=== PATIENT | female | born 1965 | race Caucasian/White ===

== ENCOUNTER → 2016-12-22 | Outpatient (CLI) | payer BC ==
--- NOTE | 2016-12-22 13:49 | REP ---
NUCLEAR PARATHYROID SESTAMIBI SCAN WITH SPECT IMAGING: Following the intravenous administration of 26.1 mCi of technetium-99m sestamibi images of the neck are performed at 15 minutes and 3 hours postinjection in the anterior and both anterior oblique projections. SPECT imaging is also performed 3 hours postinjection. The initial images show symmetrical salivary gland and thyroid activity. On delayed images there is washout of activity from the thyroid bed in a relatively symmetrical pattern. There is no persistent focus of increased uptake in the thyroid bed bilaterally. IMPRESSION: No compelling scintigraphic evidence of parathyroid adenoma. Signed by Richar Boles MD 12/22/2016 03:31 P
== END ==
LOC: M RAD 08:27
PROVIDERS: ATTEND Physician Assistant Medical
DX: E83.52 Hypercalcemia (principal)

== ENCOUNTER → 2019-08-29 | Outpatient (REF) | LOC: M LAB LCGH 10:08 | PROVIDERS: ATTEND Surgery | DX: K80.10 Calculus of gallbladder with chronic cholecystitis without obstruction (principal) ==